=== PATIENT | female | born 1945 | race Caucasian/White ===

== ENCOUNTER 2021-01-15 10:56 | Emergency (ER) | payer MEDICARE, OTHER ==
[2021-01-15] MEDS ORDERED: Diazepam 5 MG Tab PO ONE (11:38)
[2021-01-15] MEDS ORDERED: Ketorolac 30 MG/ML SDV IM ONE (11:38)
--- NOTE | 2021-01-15 11:43 | EDM.PDOC ---
ED HPI GENERAL MEDICAL PROBLEM - General Chief Complaint: Back Pain or Injury Stated Complaint: RIB PAIN Time Seen by Provider: 01/15/21 11:32 Source of Information: Reports: Patient - History of Present Illness INITIAL COMMENTS - FREE TEXT/NARRATIVE: Natalie is a 75 y/o lady who is here today with back pain and muscle achiness. She has been here in [place] the last few days getting her father's home cleaned out and ready to be sold. She was painting two days ago and is now very sore. Last night she did get a muscle relaxer from a family member and has take an Aleve this AM, but she is still quite uncomfortable. Feels very similar to when she has overdone it in the past. She is going to try to get into the chiropractor in the next day or two. No numbness or tingling, no fever. No loss of bowel or bladder function. Middle Back Pain Score (Numeric/FACES): 8 - Related Data Allergies Allergy/AdvReac Type Severity Reaction Status Date / Time amoxicillin Allergy Hives Verified 01/15/21 11:26 fentanyl Allergy Hives Verified 01/15/21 11:26 Home Meds: Home Meds Cyclobenzaprine [Flexeril] 10 mg PO TID PRN #15 tab 01/15/21 [Rx] Levothyroxine [Synthroid] 50 mcg PO ACBREAKFAST 01/15/21 [History] Metoprolol Tartrate 25 mg PO BID 01/15/21 [History] Omeprazole 40 mg PO DAILY 01/15/21 [History] Progesterone, Micronized [Progesterone] 100 mg PO DAILY 01/15/21 [History] Tiotropium [Spiriva HandiHaler] 1 puff INH BID 01/15/21 [History] atorvaSTATin [Lipitor] 40 mg PO BEDTIME 01/15/21 [History] estradioL [Estradiol] 0.5 mg PO DAILY 01/15/21 [History] metFORMIN [Glucophage XR] 500 mg PO DAILY 01/15/21 [History] Review of Systems - Review of Systems Review Of Systems: See Below Constitutional: Reports: No Symptoms Eyes: Reports: No Symptoms Ears: Reports: No Symptoms Nose: Reports: No Symptoms Mouth/Throat: Reports: No Symptoms Respiratory: Reports: No Symptoms Cardiovascular: Reports: No Symptoms GI/Abdominal: Reports: No Symptoms Genitourinary: Reports: No Symptoms Musculoskeletal: Reports: Back Pain, Muscle Stiffness Skin: Reports: No Symptoms Neurological: Reports: No Symptoms Psychiatric: Reports: No Symptoms ED EXAM, GENERAL - Physical Exam Exam: See Below General Appearance: Alert, WD/WN, No Apparent Distress (Elderly female) Eye Exam: Bilateral Eye: PERRL Ears: Hearing Grossly Normal Nose: Normal Inspection, Normal Mucosa Throat/Mouth: Normal Inspection, Normal Lips, Normal Voice Head: Atraumatic, Normocephalic Neck: Normal Inspection, Supple, Non-Tender Respiratory/Chest: No Respiratory Distress, Lungs Clear Cardiovascular: Normal Peripheral Pulses, Regular Rate, Rhythm, No Murmur GI/Abdominal: Normal Bowel Sounds, Soft, Non-Tender (Female) Exam: Deferred Rectal (Female) Exam: Deferred Back Exam: Muscle Spasm. No: Paraspinal Tenderness, Vertebral Tenderness (generalized) Extremities: Normal Inspection, Normal Range of Motion, No Pedal Edema, Normal Capillary Refill Neurological: Alert, Oriented, CN II-XII Intact, Normal Cognition, No Motor/Sensory Deficits Psychiatric: Normal Affect, Normal Mood Skin Exam: Warm, Dry, Intact, Normal Color Lymphatic: No Adenopathy Course - Vital Signs Text/Narrative:: 1132 The patient was seen by the [facility]. She was given Toradol 30mg IM and Diazepam 5mg po. 1210 Patient reports relief of pain and can move better. She is ready to go home. Written discharge instructions were given and she left the ER in stable condition. Last Recorded V/S: Last Vital Signs Temp 37.1 C 01/15/21 11:00 Pulse 75 01/15/21 11:00 Resp 16 01/15/21 11:00 BP 120/66 01/15/21 11:00 Pulse Ox 95 01/15/21 11:00 - Orders/Labs/Meds Meds: Medications Discontinued Medications Generic Name Dose Route Start Last Admin Trade Name Freq PRN Reason Stop Dose Admin Diazepam 5 mg 01/15/21 11:38 01/15/21 11:43 Diazepam 5 Mg Tab PO 01/15/21 11:39 5 mg ONETIME ONE Administration Ketorolac Tromethamine 30 mg 01/15/21 11:38 01/15/21 11:43 Ketorolac 30 Mg/Ml Sdv IM 01/15/21 11:39 30 mg ONETIME ONE Administration Departure - Departure Time of Disposition: 12:14 Disposition: DC/Tfer W/I Hosp To Swing 61 Clinical Impression: Muscle spasm Acute back pain Qualifiers: Back pain location: back pain in unspecified location Back pain laterality: bilateral Qualified Code(s): M54.9 - Dorsalgia, unspecified - Discharge Information Prescriptions: Cyclobenzaprine [Flexeril] 10 mg PO TID PRN #15 tab PRN Reason: Muscle Spasm - Painful Instructions: Acute Back Pain, Adult, Muscle Cramps and Spasms Forms: ED Department Discharge Additional Instructions: -Cyclobenzaprine 10 mg Take 1/2-1 orally every 8 hours as needed for muscle spasms #15 (Rx) -Aleve 2 tablets oral 2x/day for the next 4-5 days then as needed (Use over the counter meds) -Ice or heat applied to the area as needed -Rest, Increase activity as able -Try to get into a chiropractor for an adjustment -Follow up with your Primary Care Provider to arrange further diagnostic testing if the pain persists -Return to the ER if any other concerns Sepsis Event Note (ED) - Evaluation Sepsis Screening Result: No Definite Risk - Focused Exam Vital Signs: Vital Signs Temp Pulse Resp BP Pulse Ox 01/15/21 11:00 37.1 C 75 16 120/66 95 - Assessment/Plan Assessment:: 1)Acute Low Back Pain 2)Muscle Spasms Plan: As above
[2021-01-15] MEDS ORDERED: Take Home: Cyclobenzaprine 10 MG Tab, 4 Tab Pack PO ONE (12:13)
== END 2021-01-15 12:30 | disposition swing bed (61) ==
LOC: VM.ED 10:56
DX: M62.830 Muscle spasm of back (principal); Z79.899 Other long term (current) drug therapy; Z79.84 Long term (current) use of oral hypoglycemic drugs; Z88.0 Allergy status to penicillin; Z88.6 Allergy status to analgesic agent
CPT/HCPCS: 96372; 99283; A9270-GY; J1885